=== PATIENT | female | born 1980 | race African-American/Black ===

== ENCOUNTER 2025-05-06 13:04 | Outpatient (AMB) | payer OTHER, SELFPAY ==
--- NOTE | 2025-05-06 13:06 | MHC.OFFVIS ---
Intake Visit Reasons: 2 Months / Migrane Allergies sulfamethoxazole (From Bactrim) Allergy (Unknown, Verified 05/06/25 13:09) Unknown trimethoprim (From Bactrim) Allergy (Unknown, Verified 05/06/25 13:09) Unknown Medication List - Last Reconciled 05/06/25 by Malu Easley CNP cyclobenzaprine 5 mg PO BEDTIME PRN galcanezumab-gnlm (Emgality Pen) 120 mg subcut QMONTH hydroxyzine pamoate 50 mg PO TID PRN ondansetron HCl 8 mg PO DAILY PRN sumatriptan succinate mg PO topiramate 100 mg PO BID trazodone 25 - 50 mg PO BEDTIME HPI Comments Details: 44-year-old woman with history of bad migraines in high school (1996) 1-2x/month with photophobia, sonophobia, nausea, and vomiting and would have to miss school. Migraines went into remission until 04/25/2024 when she started having severe headache on an almost daily basis. She has had multiple visits to the ER and to her PCP. She has been using hydrocodone 5/325mg 1-2/day for headache control. CT scan was negative. MRI showed nonspecific white matter hyperintensities in the deep white matter and periventricular area. Labs have been unremarkable including Lyme test. No family history of migraine. More stress and headaches after father passed in mid-09/2024. She was not able to start Emgality due to issues with getting medication at pharmacy. 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 She had about 4 migraines this week. Sumatriptan as needed helped. She has been out of work. Migraines were worse with bright light and sun. Triggers included being too hot or too cold. She had form for application from [employer] for tinted car windows. She was having some pain in L shoulder and LUE felt weaker. She had injection to L shoulder for arthritis a few months ago which helped. No numbness or tingling. [facility] Medical History (Updated 05/06/25 @ 13:09 by Malu Easley CNP) Migraine Status migrainosus Review of Systems Const Denies chills, Denies daytime sleepiness, Reports difficulty sleeping, Reports fatigue, Denies fever(s), Denies frequent falls, Reports headache(s), Denies increased appetite, Denies poor appetite, Denies snoring, Denies weakness, Denies weight gain and Denies weight loss Eyes Denies loss of vision ENT Denies vertigo, Denies dizziness, Reports headache(s) and Denies neck pain Card Denies chest pain at rest, Denies chest pain with activity, Denies syncope, Denies leg edema, Denies palpitations, Denies dyspnea and Denies dyspnea on exertion Resp Denies cough, Denies dyspnea, Denies dyspnea on exertion and Denies snoring GI Denies abdominal pain, Denies constipation, Denies heartburn, Denies diarrhea and Denies nausea Denies urinary frequency, Denies urinary incontinence and Denies urinary urgency Musc Denies abnormal gait, Denies back pain, Denies myalgias, Denies arthralgias, Denies neck pain, Denies numbness and Denies tingling Neuro Denies abnormal gait, Denies vertigo, Denies dizziness, Denies syncope, Denies frequent falls, Reports headache(s), Denies lack of coordination, Denies loss of vision, Denies memory loss, Denies numbness, Denies Other visual disturbances, Denies restless legs, Denies seizure-like activity, Denies tingling, Denies paresthesias, Denies tremor(s) and Denies weakness Psych Reports anxiety, Reports depression, Denies auditory hallucinations, Denies memory loss and Denies visual hallucinations Endo Reports fatigue and Denies palpitations Physical Exam Const Other: General Appearance:? normal, in no acute distress. Heart:? S1, S2 normal, no murmurs. Lungs:? clear anteriorly and posteriorly. Musculoskeletal:? normal. Extremities:? no edema. Psych:? alert, oriented, cognitive function intact, cooperative with exam. Neuro Other: Abnormal Neurological Findings:?generalized UE weakness with submaximal effort on motor testing. Mental Status: alert and oriented X 3. Normal attention, orientation, memory, and affect. Cranial Nerves: Pupils are equal, round, and reactive to light. External ocular muscles are intact. Visual greenwood are full, no ptosis. Face is symmetrical, no facial weakness or droop. Facial sensations are normal. Tongue protrudes in midline. Palate elevates symmetrically. Shoulder shrugging is normal Motor Examination: As above, otherwise normal muscle tone, bulk and strength. No atrophy or fasciculations. No drift of the extended upper extremities. DTR 2+. Plantars are flexor. Sensory Exam: Normal light touch, temperature, pinprick, vibration, and joint-position sensations. Rhomberg sign is absent. Coordination: No ataxia. No titubation. Gait Exam: Within normal limits. Cerebellar Signs: [id number] is okay. Extrapyramidal System: No tremor, rigidity with normal facial expressions. No bradykinesia. No bradyphrenia. Normal arm swing and posture. No propulsion or retropulsion. Speech: Normal. No dysphasia or dysarthria. Results Reviewed Results Reviewed: January to March 2024 CT brain negative, MRI shows white matter hyperintense lesions in both hemispheres in deep and perivent distribution. Labs normal including Lyme Assessment & Plan Assessment & Plan (1) Migraine: Code(s): G43.909 - Migraine, unspecified, not intractable, without status migrainosus Category: Medical Qualifiers: Migraine type: unspecified Status migrainosus presence: without status migrainosus Intractability: not intractable Qualified Code(s): G43.909 - Migraine, unspecified, not intractable, without status migrainosus Plan: She was not able to start Emgality yet. According to workload message, medication expected to be ready at pharmacy by 05/03/2025 and patient was informed. 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 Continue Emgality Solution Auto-injector 120mg/mL 1mL subcutaneous monthly. Continue topiramate 100mg 1 tablet twice a day Continue cyclobenzaprine 5mg 1 tablet at bedtime as needed for muscle spasm/pain Continue sumatriptan 100mg 1 tablet as needed for migraine Continue ondansetron 8mg 1 tablet as needed for nausea/vomiting She had [employer] form which was completed. Plan Meds tried: amitriptyline (side effects), propranolol, verapamil, topiramate, cyclobenzaprine, Depakote (side effects) Medications: New sumatriptan succinate take 1 tab at onset of headache; if no relief, may repeat 1 tab after at least 2 hrs; max = 2 tabs/24 hrs PO 10 tabs 5RF 30 days topiramate 100 mg PO BID 180 tabs 1RF 90 days cyclobenzaprine 5 mg PO BEDTIME PRN 30 tabs 5RF muscle spasm/pain 30 days ondansetron HCl 8 mg PO DAILY PRN 10 tabs 5RF nausea and vomiting 30 days Discontinued sumatriptan succinate Discontinued Reason: Order PO Coding Level of Care Code Est Pt Level 4 (21220) Diagnoses Migraine without status migrainosus, not intractable, unspecified migraine type G43.909 Migraine type: unspecified Status migrainosus presence: without status migrainosus Intractability: not intractable
--- OUTSIDE RECORDS SUMMARY | 2025-05-06 13:14 | XMS_ITS | Clinical Summary ---
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 4 Active SUMAtriptan (IMITREX) 100 mg tablet Take 1 tablet (100 mg total) by mouth. 5 Active lidocaine (LIDODERM) 5 % patchIndicatio ns:Tension headache Remove & discard patch within 12 hours or as directed by MD.Apply 2 Patches topically every 12 hours. 60 patch 5 5 Active ondansetron (ZOFRAN) 8 mg tablet Take 1 tablet (8 mg total) by mouth if needed. 5 Active cyclobenzaprin e (FLEXERIL) 5 mg tablet Take 1 tablet (5 mg total) by mouth if needed for muscle spasms. 30 tablet 5 Active hydrOXYzine pamoate (VistariL) 50 mg capsule Take 1 capsule (50 mg total) by mouth 3 (three) times a day if needed for anxiety. 90 capsule 1 5 Active predniSONE (DELTASONE) 10 mg tablet Take 4 tablets daily for 3 days than 3 tablets daily for 3 days than 2 tablets for 3 days than 1 tablet daily for 3 days 30 tablet 5 Active hydrOXYzine HCL (ATARAX) 25 mg tablet Take 1 tablet (25 mg total) by mouth at bedtime as needed for anxiety (insomnia). 30 tablet 5 04/22/20 25 Discontinu ed(Formula ry change) cephalexin (KEFLEX) 500 mg capsuleIndicat ions:Infection of left earlobe Take 1 capsule (500 mg total) by mouth 2 (two) times a day for 5 days. 10 each 5 04/10/20 25 ibuprofen (ADVIL,MOTRIN) 600 mg tabletIndicati ons:Infection of left earlobe Take 1 tablet (600 mg total) by mouth every 8 (eight) hours if needed for mild pain or moderate pain (pain) for up to 10 days. 30 tablet 5 04/15/20 25 doxycycline (VIBRAMYCIN) 100 mg capsule Take 1 capsule (100 mg total) by mouth 2 (two) times a day for 10 days. Take with at least 8 ounces (large glass) of water, do not lie down for 30 minutes after. Administer 2 hours before or after multivitamins, antacids, or other products containing polyvalent cations (i.e., calcium, iron, magnesium, selenium, zinc). 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 ([facility] V24) 02/29/2020 PTSD (post-traumatic stress disorder) 02/09/2012 Obesity 04/13/2011 Encounters Date Type Department Care Team Description 04/22/2025 1:15 PM EDT Office Visit Internal Medicine - [address] [place] [address] Michael Sutton MD Acute midline thoracic back pain (Primary Dx); Left ear pain 04/18/2025 Telephone Internal Medicine - [address] [place] [phone] Michael Sutton MD Medication Problem 04/05/2025 3:00 PM EDT Office Visit Internal Medicine [address] [phone] Gigi Saini NP Infection of left earlobe (Primary Dx) 04/05/2025 Telephone Internal Medicine [address] [phone] Michael Sutton MD Ear Problem (Severe Pain Left Ear) 03/04/2025 2:45 PM EDT Office Visit Internal [address] [phone] Delaney Leonardo NP Acute pain of left shoulder (Primary Dx) 02/13/2025 Telephone Internal [address] [phone] Michael Sutton MD Shoulder Pain from Last 3 Months Immunizations Name Administration Dates Next Due Tdap Tetanus diptheria acell ular pertussis (Boostrix; Adacel) 7yo and older 12/19/2013 Surgical History Surgery Date Site/Laterality Comments OTHER SURGICAL HISTORY PROCEDURE: DENIES PREVIOUS SURGERY STEREOTACTIC CORE BIOPSY Medical History Medical History Date Comments PTSD (post-traumatic stress disorder) 02/09/2012 DX:PTSD (post-traumatic stress disorder) Obesity 04/13/2011 DX:Obesity Family History Medical History Relation Name Comments Breast cancer Mother's side m aunt Other cancer Mother's side m aunt aunt Relation Name Status Comments Mother's side m aunt Social History Tobacco Use Types Packs/Day Years Used Date Smoking Tobacco: Never Smokeless Tobacco: Never Tobacco Cessation:Counseling Given: Not Answered Alcohol Use Standard Drinks/Week Comments Yes 0 (1 standard drink = 0.6 oz pur e alcohol) Comments No Sex and Gender Information Value Date Recorded Sex Assigned at Not on file Legal Sex Female 8:21 PM EST Gender Identity Not on file Sexual Orientation Not on file Obstetrics History Para Term AB IAB SAB Ectopic Multiple Livin g Live Births 0 0 0 Last Filed Vital Signs Vital Sign Reading Time Taken Comments Blood Pressure 110/56 04/22/2025 1:09 PM EDT Pulse 84 04/22/2025 1:09 PM EDT Temperature - - Respiratory Rate - - Oxygen Saturation - - Inhaled Oxygen Concentration - - Weight 75.8 kg (167 lb) 04/22/2025 1:09 PM EDT Height 162.6 cm (5' 4 ) 04/22/2025 1:09 PM EDT Body Mass Index 28.67 04/22/2025 1:09 PM EDT Plan of Treatment Health Maintenance Due Date Last Done Comments Hepatitis B Vaccines (1 of 3 - 19+ 3-dose series) 12/27/1998 Colorectal Cancer Screening: Colonoscopy 09/04/2022 Social Influencers of Health Screening 09/04/2022 Cholesterol Screening (Lipid Panel) 10/19/2022 10/19/2017 DTaP,Tdap,and Td Vaccines (2 - Td or Tdap) 12/20/2023 12/19/2013 Cervical Cancer Screening: HPV 04/25/2024 04/25/2019 COVID-19 Vaccine ( season) 2024 Depression Screening 09/26/2024 05/03/2024 Influenza Vaccine (#1) 2025 Breast Cancer Screening 10/27/2026 10/27/19, 04/06/2023, 02/08/2022, Additional history exists HIV Screening Completed 10/04/2023 Hepatitis C Screening Completed 05/01/2024 HIB Vaccines Aged Out No longer eligi ble based on patient's age to complete this topic HPV Vaccines Aged Out No longer eligi ble based on patient's age to complete this topic Hepatitis A Vaccines Aged Out No long er eligible based on patient's age to complete this topic IPV Vaccines Aged Out No longer eligi ble based on patient's age to complete this topic MMR Vaccines Aged Out No longer eligi ble based on patient's age to complete this topic Meningococcal ACWY Vaccine Aged Out N o longer eligible based on patient's age to complete this topic Meningococcal B Vaccine Aged Out No l onger eligible based on patient's age to complete this topic Pneumococcal Vaccine: Pediatrics (0 to 5 Years) and At-Risk Patients (6 to 49 Years) Aged Out No longer eligible based on patient's age to complete this topic RSV Immunization Patients Under 20 months Aged Out No longer eligible based on patient's age to complete this topic Varicella Vaccines Aged Out No longer eligible based on patient's age to complete this topic Goals Goal Patient Goal Type Associated Problems Recent Progress Patient-Stated? Author Pt stated General Yes Madi Mcgregor, OT Note: Arms to get better STG 4-6 visits General Yes Madi Mcgregor, OT Note: Patient will report <=6/10 pain in B sh, Patient will demo B sh AROM improved by 10* for increased ease of donning overhead shirt Patient will demo improved functional use of B upper extremity as evidenced by Quick Dash score <= 58 to be able to shower with moderate pain, and Patient will perform initial HEP MOD I LTG 16 visits General No Madi Mcgregor, OT Note: Patient will report <=3/10 pain in B sh, Patient will demo B sh AROM WFL for ADLs, Patient will demo B UE strength WFL for light IADLs, Patient will demo improved functional use of B upper extremity as evidenced by Quick Dash score <= 35 to be able to perform laundry, and Patient will perform HEP MOD I Procedures Procedure Name Priority Date/Time Associated Diagnosis Comments MG MAMMO DIGITAL SCREENING W CELSA BILAT Routine 10/27/2024 10:18 AM EST Screening mammogram for breast cancer DEPRESSION SCREENING Routine 05/03/2024 HEPATITIS C SCREENING Routine 05/01/2024 HIV SCREENING Routine 10/04/2023 HPV Routine 04/25/2019 LIPID PANEL Routine 10/19/2017 from Last 3 Months or Most Recently Relevant to Health Maintenance Results * MG Mammo Digital Screening w Celsa bilat (10/27/2024 10:18 AM EST) Anatomical Region Laterality Modality Breast Bilateral Mammography 10/27/2024 3:46 PM EST Impressions 10/27/2024 3:50 PM EST No mammographic evidence for malignancy. BI-RADS CATEGORY: 1 - NEGATIVE RECOMMENDATION: Screening bilateral mammogram is recommended in 1 year. Mammo Location: [facility], [address] [place] [address], [id number], . -------- FINAL REPORT -------- Dictated By: Rose Venegas Dictated Date: 10/27/2024 15:46 ET Assigned Physician: Rose Venegas Reviewed and Electronically Signed By: Rose Venegas Signed Date: 10/27/2024 15:50 ET Workstation ID: [id number] Transcribed By: Self Edit Transcribed Date: 10/27/2024 15:46 ET Narrative 10/27/2024 3:50 PM EST Bilateral screening mammogram. CLINICAL: 43 years old, Female, routine annual exam. COMPARISON: Prior mammograms, latest from 04/06/2023. TECHNIQUE: Bilateral MLO and CC views were obtained digitally with 2-D C views and 3-D mammogram (digital breast tomosynthesis). Computer-aided detection was utilized in evaluation of this exam (CAD). FINDINGS: There is no evidence of suspicious mass or architectural distortion. No worrisome calcifications are evident. There has been no significant change from prior exam(s). BREAST DENSITY: C - The breasts are heterogeneously dense which may obscure small masses. Procedure Note Rose Venegas MD - 10/27/2024 Bilateral screening mammogram. CLINICAL: 43 years old, Female, routine annual exam. COMPARISON: Prior mammograms, latest from 04/06/2023. TECHNIQUE: Bilateral MLO and CC views were obtained digitally with 2-D Cviews and 3-D mammogram (digital breast tomosynthesis). Computer-aideddetection was utilized in evaluation of this exam (CAD). FINDINGS: There is no evidence of suspicious mass or architectural distortion. Noworrisome calcifications are evident. There has been no significantchange from prior exam(s). BREAST DENSITY: C - The breasts are heterogeneously dense which mayobscure small masses. IMPRESSION: No mammographic evidence for malignancy. BI-RADS CATEGORY: 1 - NEGATIVE RECOMMENDATION: Screening bilateral mammogram is recommended in 1 year. Mammo Location: [facility], [address] [place] [address], [id number], . -------- FINAL REPORT -------- Dictated By: Rose Venegas Dictated Date: 10/27/2024 15:46 ET Assigned Physician: Rose Venegas Reviewed and Electronically Signed By: Rose Venegas Signed Date: 10/27/2024 15:50 ET Workstation ID: [id number] Transcribed By: Self Edit Transcribed Date: 10/27/2024 15:46 ET Result [facility] PITTS IMG BI PROCEDURES Final Resu lt * Depression Screening (05/03/2024) Pathologist [facility] Depression Screening Abstracted Result [facility] Provider HEALTH MAINTENANCE Final Result * Hepatitis C Screening (05/01/2024) [facility] Hepatitis C Screening Abstracted Result [facility] Provider HEALTH MAINTENANCE Final Result * HIV Screening (10/04/2023) [facility] HIV Screening Abstracted Result [facility] Provider HEALTH MAINTENANCE Final Result * Cervical Cancer Screening: HPV (04/25/2019) [facility] Cervical Cancer Screening: HPV Negative, Abstracted Result [facility] Provider HEALTH MAINTENANCE Final Result * (ABNORMAL) Lipid panel (10/19/2017) [facility] LDL/HDL Ratio 4 0 - 4 Triglycerides 133 0 - 150 mg/dL Cholesterol 228(A) 0 - 200 mg/dL HDL 65 >=40 mg/dL LDL Cholesterol 137(A) 0 - 100 mg/dL Blood Venous blood specimen / Unknown Result [facility] Provider LAB BLOOD ORDERABLES Marcelle l Result from Last 3 Months or Most Recently Relevant to Health Maintenance Insurance [facility] [employer] Care Teams Retail Bakery Manager Relationship Specialty Start Date End Date Michael Sutton MD [address] [place] [id number] PCP - General Internal Medicine 08/30/24
--- OUTSIDE RECORDS SUMMARY | 2025-05-06 13:14 | XMS_ITS ---
[facility] Care Team Organization Name Specialty Phone Email Start Date End Da te [facility] Michael Sutton Primary Care 08/03/2022 05/14/20 24
== END 2025-05-06 13:29 | disposition home or self-care (01) ==
LOC: HO.HSM 13:04
PROVIDERS: PCP Internal Medicine; Visit Provider Registered Nurse
DX: G43.909 Migraine, unspecified, not intractable, without status migrainosus (principal)
CPT/HCPCS: 99214

== ENCOUNTER → 2025-05-06 13:04 | Outpatient (BNVA) | payer OTHER, SELFPAY | PROVIDERS: PCP Internal Medicine; Visit Provider Registered Nurse | DX: G43.909 Migraine, unspecified, not intractable, without status migrainosus (principal); Z79.899 Other long term (current) drug therapy | CPT/HCPCS: 99212 ==

== ENCOUNTER 2025-08-05 13:34 | Outpatient (AMB) | payer OTHER, SELFPAY ==
--- NOTE | 2025-08-05 13:43 | MHC.OFFVIS ---
Intake Visit Reasons: 3 Months for MCKAY Allergies sulfamethoxazole (From Bactrim) Allergy (Unknown, Verified 08/05/25 13:44) Unknown trimethoprim (From Bactrim) Allergy (Unknown, Verified 08/05/25 13:44) Unknown Medication List - Last Reconciled 08/05/25 by Malu Easley CNP cyclobenzaprine 5 mg PO BEDTIME PRN 30 days galcanezumab-gnlm (Emgality Pen) 120 mg subcut QMONTH hydroxyzine pamoate 50 mg PO TID PRN ondansetron HCl 8 mg PO DAILY PRN 30 days sumatriptan succinate take 1 tab at onset of headache; if no relief, may repeat 1 tab after at least 2 hrs; max = 2 tabs/24 hrs PO 30 days topiramate 100 mg PO BID 90 days trazodone 25 - 50 mg PO BEDTIME HPI Comments Details: 44-year-old woman with history of bad migraines in high school (1996) 1-2x/month with photophobia, sonophobia, nausea, and vomiting and would have to miss school. Migraines went into remission until 04/25/2024 when she started having severe headache on an almost daily basis. She had multiple visits to the ER and to her PCP, and had been using hydrocodone 5/325mg 1-2/day for headache control. CT scan was negative. MRI showed nonspecific white matter hyperintensities in the deep white matter and periventricular area. Labs have been unremarkable including Lyme test. No family history of migraine. She had first dose of Emgality in 04/2025 which helped migraines. Migraines were less frequent and less severe. Migraines were happening about 2x/week, down from about 4x/week. Due to some insurance issues, she was without Emgality for the last 2 months. Migraines increased in frequency and severity without medication. Ondansetron as needed did not seem to be helping with nausea and vomiting as much as before. The issue with insurance was apparently cleared up, but pharmacy needed new script and possibly new PA had to be done. She had FMLA forms to be completed. [facility] Medical History (Updated 05/06/25 @ 13:09 by Malu Easley CNP) Migraine Status migrainosus Review of Systems Const Denies chills, Denies daytime sleepiness, Reports difficulty sleeping, Reports fatigue, Denies fever(s), Denies frequent falls, Reports headache(s), Denies increased appetite, Denies poor appetite, Denies snoring, Denies weakness, Denies weight gain and Denies weight loss Eyes Denies loss of vision ENT Denies vertigo, Denies dizziness, Reports headache(s) and Denies neck pain Card Denies chest pain at rest, Denies chest pain with activity, Denies syncope, Denies leg edema, Denies palpitations, Denies dyspnea and Denies dyspnea on exertion Resp Denies cough, Denies dyspnea, Denies dyspnea on exertion and Denies snoring GI Denies abdominal pain, Denies constipation, Denies heartburn, Denies diarrhea and Denies nausea Denies urinary frequency, Denies urinary incontinence and Denies urinary urgency Musc Denies abnormal gait, Denies back pain, Denies myalgias, Denies arthralgias, Denies neck pain, Denies numbness and Denies tingling Neuro Denies abnormal gait, Denies vertigo, Denies dizziness, Denies syncope, Denies frequent falls, Reports headache(s), Denies lack of coordination, Denies loss of vision, Denies memory loss, Denies numbness, Denies Other visual disturbances, Denies restless legs, Denies seizure-like activity, Denies tingling, Denies paresthesias, Denies tremor(s) and Denies weakness Psych Reports anxiety, Reports depression, Denies auditory hallucinations, Denies memory loss and Denies visual hallucinations Endo Reports fatigue and Denies palpitations Physical Exam Const Other: General Appearance:? normal, in no acute distress. Heart:? S1, S2 normal, no murmurs. Lungs:? clear anteriorly and posteriorly. Musculoskeletal:? normal. Extremities:? no edema. Psych:? alert, oriented, cognitive function intact, cooperative with exam. Neuro Other: Abnormal Neurological Findings:?generalized UE weakness with submaximal effort on motor testing. Mental Status: alert and oriented X 3. Normal attention, orientation, memory, and affect. Cranial Nerves: Pupils are equal, round, and reactive to light. External ocular muscles are intact. Visual greenwood are full, no ptosis. Face is symmetrical, no facial weakness or droop. Facial sensations are normal. Tongue protrudes in midline. Palate elevates symmetrically. Shoulder shrugging is normal Motor Examination: As above, otherwise normal muscle tone, bulk and strength. No atrophy or fasciculations. No drift of the extended upper extremities. DTR 2+. Plantars are flexor. Sensory Exam: Normal light touch, temperature, pinprick, vibration, and joint-position sensations. Rhomberg sign is absent. Coordination: No ataxia. No titubation. Gait Exam: Within normal limits. Cerebellar Signs: Pjxnas-oy-cvri is okay. Extrapyramidal System: No tremor, rigidity with normal facial expressions. No bradykinesia. No bradyphrenia. Normal arm swing and posture. No propulsion or retropulsion. Speech: Normal. No dysphasia or dysarthria. Results Reviewed Results Reviewed: January to March 2024 CT brain negative, MRI shows white matter hyperintense lesions in both hemispheres in deep and perivent distribution. Labs normal including Lyme Assessment & Plan Assessment & Plan (1) Migraine: Code(s): G43.909 - Migraine, unspecified, not intractable, without status migrainosus Category: Medical Qualifiers: Migraine type: unspecified Status migrainosus presence: without status migrainosus Intractability: not intractable Qualified Code(s): G43.909 - Migraine, unspecified, not intractable, without status migrainosus Plan: Significant improvement in migraines after one dose of Emgality in 04/2025. She was without medication for about 2 months apparently due to some insurance issue that was now resolved. Migraines increased without medication. Continue Emgality Solution Auto-injector 120mg/mL 1mL subcutaneous monthly - new script sent to pharmacy Continue topiramate 100mg 1 tablet twice a day. Continue sumatriptan 100mg 1 tablet as needed for migraine. Continue cyclobenzaprine 5mg 1 tablet at bedtime as needed for muscle spasm/pain #30 for 30 days. Ondansetron as needed was not helping with nausea/vomiting, medication discontinued. Start metoclopramide 10mg 1 tablet as needed for nausea/vomiting, use/side effects reviewed #20 for 30 days. FMLA forms completed. Plan Meds tried: amitriptyline (side effects), propranolol, verapamil, topiramate, cyclobenzaprine, Depakote (side effects) Medications: New metoclopramide HCl 10 mg PO DAILY PRN 20 tabs 2RF nausea and vomiting 30 days Changed From galcanezumab-elizabeth (Emgality Pen) 120 mg subcut QMONTH To galcanezumab-gnlm (Emgality Pen) 120 mg subcut QMONTH 1 mL 5RF 30 days Refilled cyclobenzaprine 5 mg PO BEDTIME PRN 30 tabs 5RF muscle spasm/pain 30 days topiramate 100 mg PO BID 180 tabs 1RF 90 days sumatriptan succinate take 1 tab at onset of headache; if no relief, may repeat 1 tab after at least 2 hrs; max = 2 tabs/24 hrs PO 10 tabs 5RF 30 days Discontinued ondansetron HCl Discontinued Reason: Doctor's Order 8 mg PO DAILY 30 days PRN 10 tabs 5RF nausea and vomiting Coding Level of Care Code Est Pt Level 4 (76412) Diagnoses Migraine without status migrainosus, not intractable, unspecified migraine type G43.909 Migraine type: unspecified Status migrainosus presence: without status migrainosus Intractability: not intractable
--- OUTSIDE RECORDS SUMMARY | 2025-08-05 15:43 | XMS_ITS | Clinical Summary ---
Author Organization [address] Address [address] [place] [phone] Phone Care Team Providers Care Senior Manufacturing Engineer Name Role Phone Michael Sutton MD Primary Care Provider [phone] Allergies Active Allergy Reactions Criticality Noted Date [...] mouth. 5 Active lidocaine (LIDODERM) 5 % patchIndication s:Tension headache Remove & discard patch within 12 hours or as directed by MD.Apply 2 Patches topically every 12 hours. 60 patch 5 5 Active ondansetron (ZOFRAN) 8 mg tablet Take 1 tablet (8 mg total) by mouth if needed. 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 ([facility] V24) 02/29/2020 PTSD (post-traumatic stress disorder) 02/09/2012 Obesity 04/13/2011 Immunizations Immunization Administration Dates Next Due Tdap Tetanus diptheria [...] 04/22/2025 1:09 PM EDT Plan of Treatment Upcoming Encounters Date Type Department Care Team (Late st Contact Info) Description 09/02/2025 10:45 AM EST Office Visit Internal Medicine - [address] [phone] Supriya Reagan, [employer] [employer] [address] [place], [place] 10/08/2025 3:30 PM EST Office Visit Obstetrics and Gynecology - [address] [phone] Alfreda Oliva, [facility] [address] [place] [phone] Health Maintenance Due Date Last Done Comments Colorectal Cancer Screening: Colonoscopy 1979 Hepatitis B Vaccines (1 of 3 - 19+ 3-dose series) 12/27/1998 HPV Vaccines (1 - 3-dose SCDM series) 12/27/2006 Cervical Cancer Screening: Pap Smear 04/25/2022 04/25/2019, 04/25/2019, 04/25/2019 Social Influencers of Health Screening 09/04/2022 Cholesterol Screening (Lipid Panel) 10/19/2022 10/19/2017 DTaP,Tdap,and Td Vaccines (2 - Td or Tdap) 12/20/2023 12/19/2013 Depression Screening 09/26/2024 05/03/2024 COVID-19 Vaccine ( - season) 2025 Influenza Vaccine (#1) 2025 Breast Cancer Screening 10/27/2026 10/27/19, 04/06/2023, 02/08/2022, Additional history exists RSV Immunization Adult Patients (1 - 1-dose 75+ series) 12/27/2054 HIV Screening Completed 10/04/2023 Hepatitis C Screening [...] SCREENING Routine 05/01/2024 HIV SCREENING Routine 10/04/2023 PAP SMEAR Routine 04/25/2019 LIPID PANEL Routine 10/19/2017 from [...] is recommended in 1 year. Mammo Location: [facility], [address] [place] [address], [id number], . -------- FINAL REPORT -------- Dictated By: Rose Venegas Dictated Date: 10/27/2024 15:46 ET Assigned Physician: Rose Venegas Reviewed and Electronically Signed By: Rose Venegas Signed Date: 10/27/2024 15:50 ET Workstation ID: [id number] Transcribed By: Self Edit Transcribed Date: 10/27/2024 [...] is recommended in 1 year. Mammo Location: [facility], [address] [place] [address], [id number], . -------- FINAL REPORT -------- Dictated By: Rose Venegas Dictated Date: 10/27/2024 15:46 ET Assigned Physician: Rose Venegas Reviewed and Electronically Signed By: Rose Venegas Signed Date: 10/27/2024 15:50 ET Workstation ID: [id number] Transcribed By: Self Edit Transcribed Date: 10/27/2024 15:46 ET Result [facility] Alfreda Oliva CNM IMG BI PROCEDURES Final Resu lt * Depression Screening (05/03/2024) Pathologist [facility] Depression Screening Abstracted Result [facility] Provider MD HEALTH MAINTENANCE Final Result * Hepatitis C Screening (05/01/2024) [facility] Hepatitis C Screening Abstracted Result [facility] Provider HEALTH MAINTENANCE Final Result * HIV Screening (10/04/2023) [facility] HIV Screening Abstracted Result [facility] Provider HEALTH MAINTENANCE Final Result * Pap smear (04/25/2019) 04/25/2019 Narrative HISTORICAL TESTING LAB RESULTING AGENCY - 04/27/2019 5:00 PM EDT [id number] THINPREP PAP, IMAGED: NEGATIVE FOR SQUAMOUS INTRAEPITHELIAL LESION AND MALIGNANCY . CHERYL HERZOG , CT(ASCP) (CASE ELECTRONICALLY SIGNED 04 27 2019) RESULT OF APTIMA HIGH RISK HPV ASSAY: HIGH RISK HPV: NEGATIVE (SEROTYPES 16,18,31,33,35,39,45,51,52,56,58,59,66,68) COMPLETED ON 2019-04-27 ADEQUACY: SATISFACTORY ENDOCERVICAL/TRANSFORMATION ZONE COMPONENT PRESENT. SOURCE: THINPREP PAP HPV ANY DX: REFLEX 16 AND 18, CERVICAL, IMAGED CLINICAL INFORMATION: HPV ANY DIAGNOSIS. HORMONES, PAP HX NEG, Z12.4 Erin Vo CNM LAB CYTOLOGY ORDERA BLES Final Result HISTORICAL TESTING LAB RESULTING AGENCY * (ABNORMAL) Lipid panel (10/19/2017) LDL/HDL Ratio 4 0 - 4 Triglycerides 133 0 - 150 mg/dL Cholesterol 228(A) 0 - 200 mg/dL HDL 65 >=40 mg/dL LDL Cholesterol 137(A) 0 - 100 mg/dL Blood Venous blood specimen / Unknown Historical Provider LAB BLOOD ORDERABLES Marcelle l Result from Last 3 Months or Most Recently Relevant to Health Maintenance Insurance [facility] [employer] Care Teams Senior Manufacturing Engineer Relationship Specialty Start Date End Date Michael Sutton MD [address] [place] [id number] PCP - General Internal Medicine 08/30/24
== END 2025-08-05 13:57 | disposition home or self-care (01) ==
LOC: HO.HSM 13:34
PROVIDERS: PCP Internal Medicine; Visit Provider Registered Nurse
DX: G43.909 Migraine, unspecified, not intractable, without status migrainosus (principal)
CPT/HCPCS: 99214

== ENCOUNTER → 2025-08-05 13:34 | Outpatient (BNVA) | payer OTHER, SELFPAY | PROVIDERS: PCP Internal Medicine; Visit Provider Registered Nurse | DX: G43.909 Migraine, unspecified, not intractable, without status migrainosus (principal); Z79.899 Other long term (current) drug therapy | CPT/HCPCS: 99212 ==